=== PATIENT | male | born 1955 | race Caucasian/White ===

== ENCOUNTER 2017-05-26 01:23 | Emergency (ER) | payer OTHER ==
[~2017-05-26] VITALS: Ht 172.7 cm; Wt 102.3 kg
[~2017-05-26 01:23] MED LIST: ASPI81TA2 PO; ATRV10T PO; LISINOPRIL (*)20 MG PO; LORA5TAB8 PO
[2017-05-26 01:25] VITALS: BP 172/93; PULSE 71; RESP 16; O2SAT 92
[2017-05-26] MEDS ORDERED: Fluorescein 0.6 mg Ophthalmic Strip RIGHT_EYE ONE (02:05)
[2017-05-26] MEDS ORDERED: 0.9% Sodium Chloride Inhalation Solution RIGHT_EYE ONE (02:05)
[2017-05-26] MEDS ORDERED: Tetracaine 0.5% 4 mL Ophthalmic Solution RIGHT_EYE ONE (02:05)
--- NOTE | 2017-05-26 02:11 | ED.REPORT ---
HPI-Eye Problem Date of Service May 26, 2017 ED Provider: Kosta Fermin MD 62-year-old male with hypertension presents to the emergency department with 2 day history of right eye pain and redness no history of trauma with foreign body sensation and itchiness. Patient has flushed with no relief. Today his pain worsened and he has sensitivity to light. He is starting to develop a mild headache and runny nose. He has no blurry vision, double vision, or sore throat. The pain he feels most from mid to lateral aspect of the eye. He has no sick contacts at home. Nursing Notes Stated Complaint: RT EYE PAINFUL,FEELS LIKE SOMETHING IN EYE Chief Complaint: Eye Nursing Notes Reviewed: Yes Allergies: Coded Allergies: No Known Allergies (Verified Allergy, Unknown, 04/13/16) Scheduled Aspirin-Expunged Drug, Do Not Renew! (Aspirin-Expunged Drug, Do Not Renew!) 81 Mg Tab 81 MG PO DAILY Atorvastatin (Lipitor) 10 Mg Tab 10 MG PO DAILY Lisinopril-Expunged Drug, Do Not Renew! (Lisinopril-Expunged Drug, Do Not Renew! ) 20 Mg Tablet 40 MG PO DAILY Loratadine-Expunged Drug, Do Not Renew! (Loratadine-Expunged Drug, Do Not Renew! ) 5 Mg Tab.rapdis 0 PO DAILY General Time Seen by MD: 01:50 Chief Complaint Right eye affected, Pain, Redness Hx Obtained From: Patient Sudden in Onset?: Yes Onset Occurred: 2 days ago Symptom Duration: Since onset Progression Since Onset: Gradually worsening Location: : Eye right Quality: Itching, Painful Past Medical History Past Medical History Hypertension depression BPH Past Surgical History Cyst removal on finger Smoking History Former Smoker, Never Smoker Social History Alcohol Use: "Social" Drug Use: Denies drug use Ambulatory Status Independent Review of Systems A comprehensive review of systems was conducted with the patient and found to be negative except as above in the History of Present Illness. Physical Exam Initial Vital Signs Vital Signs (First) Date Time Temp Pulse Resp B/P Pulse Ox O2 Delivery O2 Flow Rate FiO2 05/26/17 01:25 36.7 71 16 172/93 92 Room Air Initial VS: Reviewed, Vital signs abnormal (hypertensive) General / Const: Well-developed, Well-nourished ENT: Mucous membranes moist, Conjunctiva normal, No scleral icterus Neck: Supple, Non-tender, Full range of motion Respiratory: Breath sounds normal, Clear to auscultation, No respiratory distress Cardiovascular: Regular rate & rhythm Abdomen / GI: Soft, Non-tender Extremities: Vascular intact, Neuro intact, No swelling, No tenderness Skin: Warm, Dry, No cyanosis Neurologic: Alert, Oriented, Nonfocal Psychiatric: Mood/affect normal, Behavior normal, Normal thought content Head / Eyes: Normocephalic, PERRL, EOMI Conjunctiva / Sclera: Positive: Injected right Fluorescein examination reveals a punctate lesion just lateral to limbus at midline. Slit-lamp examination reveals mild white blood cell infiltration to same area. No other areas of abrasion seen. Patient has shallow angle leaving him at risk for angle closure leading to glaucoma. Pressure measured with Kar-Pen at 16. Procedures Slit Lamp Exam Procedure Performed by: ED physician, ED resident Which Eye: Right Dilating Agent & Anesthesia: Anesthesia: Tetracaine Eyelid / Conjunctiva / Sclera: Eyelid(s) normal, Conjunctiva injected Cornea/Ant Chamber/Iris/Lens: Corneal abrasion, Iris round Re-Eval/Medical Decision Med Decision/Clinical Course 62-year-old with a red eye, visualized corneal abrasion, and another smaller scleral abrasion below that. No apparent corneal ulcer. Visualized defect is shallow, without much infiltration, and has the appearance of healing abrasion. He had no evidence of flare, no evidence of injection of the limbus, no evident erythema of the iris, no blood or haze in the vitreous, hypertensive appearing fundus, but no other acute findings. Pressure measured at sixteen. Referred to [facility] for follow-up. Erythromycin ointment 4 times a day. 62-year-old male with hypertension presents to the emergency department with increasing eye pain leading to redness and photophobia. I was visualized under with lamp with fluorescein and under slit lamp. Patient found to have punctate corneal abrasion at about the 8 o'clock position within the visual cornea. Patient's pain was much improved with tetracaine making this more likely to be a superficial process. Patient has shallow angle leaving him at risk for angle closure leading to glaucoma. Pressure measured with Kar-Pen at 16. Funduscopic exam did not reveal papilledema. Patient given first dose of erythromycin ointment and was sent home for 4 times a day dosing for the next 5 days. Follow up with ophthalmology recommended. Patient's questions were answered, he was discharged home in improved condition. Counseled Regarding: Diagnosis, Need for follow-up, When/why to return to ED Discharge & Departure Primary Impression: Corneal abrasion Encounter type: initial encounter Laterality: right Qualified Code: S05.01XA - Injury of conjunctiva and corneal abrasion without foreign body, right eye, initial encounter Additional Impression: Conjunctivitis Conjunctivitis type: acute Acute conjunctivitis type: unspecified Laterality: right Qualified Code: H10.31 - Unspecified acute conjunctivitis, right eye Disposition: Home Discharge Condition All VS Reviewed: Yes Condition: Stable Patient Instructions: Corneal Abrasion (ED) Additional Instructions: Thank you for entrusting us with your care today. Place erythromycin ointment in the eye 4 times daily for 5 days. I recommend that you schedule an "emergency department follow-up" appointment with test man this week. You may use cool or warm compresses whichever feels better to help with pain. Return to the emergency department for acute vision changes. Referrals: Lico Pizarro MD (PCP) [facility] Attending Statement As attending of record for this patient, I conducted an independent history and physical exam, and agree with the documentation as per the resident note, and as amended. copies to: Lico Pizarro MD; [facility] Viola Knott DO May 26, 2017 02:11 Kosta Fermin MD May 26, 2017 07:54
[2017-05-26] MEDS ORDERED: Erythromycin 0.5% 3.5 Gm Ophthalmic Ointment RIGHT_EYE SCH ×2 (03:30→08:30)
[2017-05-26 04:00] VITALS: BP 154/78; PULSE 63; RESP 20; O2SAT 98
== END 2017-05-26 04:03 | disposition home or self-care (01) ==
LOC: SED 01:23
DX: S05.01XA Injury of conjunctiva and corneal abrasion without foreign body, right eye, initial encounter (principal); H10.31 Unspecified acute conjunctivitis, right eye; X58.XXXA Exposure to other specified factors, initial encounter; Y93.89 Activity, other specified; Y99.8 Other external cause status; Y92.018 Other place in single-family (private) house as the place of occurrence of the external cause; I10 Essential (primary) hypertension; Z87.891 Personal history of nicotine dependence; Z79.82 Long term (current) use of aspirin